=== PATIENT | female | born 1985 | race Two or more races ===

== ENCOUNTER 2020-06-13 12:17 | Outpatient (CLI) | payer OTHER | END 2020-06-13 16:26 | disposition home or self-care (01) | LOC: OFIC 805 12:17 | PROVIDERS: ATTEND Otolaryngology Otology & Neurotology | DX: G47.33 Obstructive sleep apnea (adult) (pediatric) (principal); R06.83 Snoring; R09.82 Postnasal drip ==

== ENCOUNTER 2020-07-18 11:18 | Outpatient (CLI) | payer OTHER | END 2020-07-18 15:00 | disposition home or self-care (01) | LOC: OFIC 805 11:18 | PROVIDERS: ATTEND Otolaryngology Otology & Neurotology | DX: G47.33 Obstructive sleep apnea (adult) (pediatric) (principal); R06.83 Snoring; R09.82 Postnasal drip ==

== ENCOUNTER 2022-04-17 11:15 | Inpatient (IN) | payer OTHER ==
[~2022-04-17] VITALS: Ht 165.1 cm; Wt 57.2 kg
[2022-04-17] MEDS ORDERED: ZOLOFT100 MG PO (13:21)
[2022-04-17] MEDS ORDERED: ZYRTEC10 M3 PO (13:21)
[2022-04-17] MEDS ORDERED: XANAX XR3 MG (13:22)
== END 2022-04-25 09:28 | disposition home or self-care (01) | DRG 331 ==
LOC: O/R 04-23 05:53 → SURH 04-23 07:00
PROVIDERS: ADMIT Colon & Rectal Surgery; ATTEND Colon & Rectal Surgery
PROC: 0DBP4ZZ Excision of Rectum, Percutaneous Endoscopic Approach (ICD-10-PCS; 2022-04-23)
PROC: 0DQP4ZZ Repair Rectum, Percutaneous Endoscopic Approach (ICD-10-PCS; 2022-04-23)
PROC: 0DJD8ZZ Inspection of Lower Intestinal Tract, Via Natural or Artificial Opening Endoscopic (ICD-10-PCS; 2022-04-23)
PROC: 0DTN4ZZ Resection of Sigmoid Colon, Percutaneous Endoscopic Approach (ICD-10-PCS; principal; 2022-04-23 07:00)
DX: K59.09 Other constipation (principal); K62.3 Rectal prolapse

== ENCOUNTER 2023-11-21 16:31 | Emergency (ER) | payer OTHER ==
[~2023-11-21] VITALS: Ht 165.1 cm; Wt 56.7 kg
[~2023-11-21 16:31] MED LIST: XANAX XR3 MG; ZOLOFT100 MG PO; ZYRTEC10 M3 PO
[2023-11-21] MEDS ORDERED: ACETAMINOPHEN 500 MG GEL..CAP PO ONE ×2 (16:59→17:00)
[2023-11-21 17:19] LABS: HEMATOCRIT 36.9 % (36.0-45.00); HEMOGLOBIN 12.7 g/dL (12.0-15.00); MEAN CELL VOLUME 94.1 fL (80.00-100.00); MEAN CORPUSCULAR HEMOGLOBIN 32.5 pg (27.00-32.0); MEAN CORPUSCULAR HGB CONC 34.5 g/dl (32.0-36.0); PLATELET COUNT 322 K/uL (150-450); RED BLOOD COUNT 3.92 M/uL (4.00-6.00); RED CELL DISTRIBUTION WIDTH 13.5 % (11.5-14.5)
[2023-11-21 17:41] LABS: PH,URINE 5.5 (5.0-8.0); URINE APPEARANCE Clear; URINE BILIRRUBIN Negative (NEGATIVE); URINE BLOOD Large; URINE COLOR Yellow; URINE GLUCOSE Negative (NEGATIVE); URINE KETONE Trace (NEGATIVE); URINE LEUKOCYTE Negative; URINE NITRATE Negative; URINE PROTEIN Trace (NEGATIVE)
[2023-11-21 17:46] LABS: URINE EPITHELIAL CELLS 15.4 uL (0.0-38.8); URINE RBC 1376.6 uL (0.0-20.8); URINE WBC 12.2 uL (0.0-23.2)
[2023-11-21 18:04] LABS: INR 0.95; PARTIAL THROMBOPLASTIN TIME 26.4 SECONDS (22.0-34.0); PROTHROMBIN TIME 10.4 SECONDS (9.0-11.5)
[2023-11-21 18:19] LABS: CREATININE SERUM 0.71 mg/dL (0.55-1.02); GFR 92.13; POTASSIUM 3.67 mEq/L (3.5-5.1)
== END 2023-11-21 18:48 | disposition home or self-care (01) ==
LOC: ER 16:33
PROVIDERS: General Practice
DX: O46.90 Antepartum hemorrhage, unspecified, unspecified trimester (principal)